=== PATIENT | female | born 1980 | race Caucasian/White ===

== ENCOUNTER → 2017-08-27 | Outpatient (CLI) | payer OTHER ==
[~2017-08-27] MED LIST: PRENTAB26 PO; ZINC50CA3 PO
[2017-08-27 19:26] LABS: BASO % 0.3 %; BASO ABS # 0.01 K/uL (0-0.2); EOS % 0.5 %; EOS ABS # 0.02 K/uL (0-0.5); HEMATOCRIT 45.5 % (37-47); HEMOGLOBIN 16.3 g/dL (12.0-16.0); IG# 0.01 K/uL (0.00-0.02); LYMPH % 17.1 %; LYMPH ABS # 0.67 K/uL (1.2-3.4); MEAN CORPUSCULAR HEMOGLOBIN 31.5 pg (25-34); MEAN CORPUSCULAR HGB CONC 35.8 g/dl (32-36); MEAN PLATELET VOLUME 11.3 fL (7.4-10.4); MONO % 7.7 %; NEUT % 74.1 %; NEUT ABS # 2.91 K/uL (1.4-6.5); PLATELET COUNT 118 K/uL (130-400); RED CELL DISTRIBUTION WIDTH CV 12.7 % (11.5-14.5); RED CELL DISTRIBUTION WIDTH SD 40.7 fL (36.4-46.3); WHITE BLOOD COUNT 3.92 K/uL (4.8-10.8)
[2017-08-27 19:50] LABS: ALBUMIN 3.3 gm/dl (3.4-5.0); ALT/SGPT 274 U/L (12-78); AST/SGOT 150 U/L (15-37); BLOOD UREA NITROGEN 17 mg/dl (7-18); CALCIUM 8.1 mg/dl (8.5-10.1); CARBON DIOXIDE 27 mmol/L (21-32); CREATININE 0.88 mg/dl (0.60-1.20); GLUCOSE 101 mg/dl (70-99); POTASSIUM 3.7 mmol/L (3.5-5.1); SODIUM 135 mmol/L (136-145)
[2017-08-27 20:01] LABS: ALKALINE PHOSPHATASE 103 U/L (45-117); TOTAL PROTEIN 7.8 gm/dl (6.4-8.2)
== END | disposition home or self-care (01) ==
LOC: C.LAB 18:28
PROVIDERS: ATTEND Family Medicine
DX: R11.0 Nausea (principal)